=== PATIENT | male | born 1990 | race Caucasian/White ===

== ENCOUNTER 2017-06-20 16:23 | Emergency (ER) | payer SELFPAY ==
[~2017-06-20] VITALS: Ht 170.2 cm; Wt 82.1 kg
--- NOTE | 2017-06-20 16:30 | NUR ---
[address] ALETERED MENTAL STATUS. PATIENT RECEIVED IN FULL RESTRAINTS, PATIENT IS AWAKE, ADMITTED USE OF METH AND ADMITS TAKING FENTANYL, PATIENT IS TACHY AT 170S AT THIS TIME. GOWNED PT AND PLACED ON TELE MONITOR. PENDING MD EISENBERG
--- NOTE | 2017-06-20 16:40 | NUR ---
AT [facility]OM[facility] EISENBERG
--- NOTE | 2017-06-20 16:45 | NUR ---
IV ACCESSED TO BRANDY 20
[2017-06-20] MEDS: IV NS 0.9% 1,000 ML BAG IV ONE ×2 (16:48→16:50)
[2017-06-20] MEDS ORDERED: LORAZEPAM INJ 2 MG/ML VIAL ONE ×2 (16:50→18:25)
--- NOTE | 2017-06-20 16:58 | NUR ---
URINE SAMPLE COLLECTED AND SENT TO LAB
[2017-06-20] MEDS ORDERED: LORAZEPAM INJ 2 MG/ML VIAL IVP ONE ×2 (17:00→18:30)
[2017-06-20 17:18] LABS: BASOPHILS # (AUTO) 0.1 /CMM (0.0-0.2); BASOPHILS % (AUTO) 0.5 % (0.0-2.0); EOSINOPHILS # (AUTO) 0.2 /CMM (0.0-0.7); EOSINOPHILS % (AUTO) 1.8 % (0.0-6.0); HEMATOCRIT 48 % (39-51); HEMOGLOBIN 16.2 g/dL (13.5-17.5); LYMPHOCYTES # (AUTO) 3.1 /CMM (0.8-4.8); LYMPHOCYTES % (AUTO) 22.6 % (20.0-44.0); MEAN CORPUSCULAR HEMOGLOBIN 29 PG (26.0-33.0); MEAN CORPUSCULAR HGB CONC 33 g/dl (31.0-36.0); MEAN CORPUSCULAR VOLUME 87 fL (80-96); MONOCYTES # (AUTO) 0.7 /CMM (0.1-1.30); MONOCYTES % (AUTO) 4.9 % (2.0-12.0); NEUTROPHILS # (AUTO) 9.6 /CMM (1.8-8.9); NEUTROPHILS % (AUTO) 70.2 % (43.0-81.0); PLATELET COUNT (AUTO) 344 /CMM (150-450); RDW COEFFICIENT OF VARIATION 11.6 (11.5-15.0); RED BLOOD CELL COUNT(AUTO) 5.54 MIL/uL (4.5-6.0); WHITE BLOOD COUNT (AUTO) 13.7 K/uL (4.3-11.0)
[2017-06-20 17:24] LABS: CALCIUM, SERUM 10.9 mg/dL (8.5-10.1); CARBON DIOXIDE 24 mmol/L (21-32); CHLORIDE 108 mmol/L (98-107); CREATININE 2.4 mg/dL (0.6-1.3); GLUCOSE 98 mg/dL (74-106); POTASSIUM 3.9 mmol/L (3.5-5.1); SODIUM SERUM 148 mmol/L (136-145); UREA NITROGEN, BLOOD 26 mg/dL (7-18)
[2017-06-20 17:29] LABS: ALANINE AMINOTRANSFERASE 87 U/L (12-78); ALBUMIN 5.2 g/dL (3.4-5.0); ALKALINE PHOSPHATASE 143 U/L (46-116); ASPARTATE AMINOTRANSFERASE 54 U/L (15-37); BILIRUBIN,DIRECT 0.2 mg/dL (0.0-0.2); BILIRUBIN,TOTAL 0.8 mg/dL (0.2-1.0); TOTAL PROTEIN, SERUM 8.8 g/dL (6.4-8.2)
[2017-06-20 17:32] LABS: SALICYLATE 1.1 mg/dL (2.8-20.0)
[2017-06-20 17:33] LABS: ACETAMINOPHEN < 2 ug/ml (10-30); ALCOHOL, BLOOD < 3 mg/dL (0-0)
[2017-06-20 17:46] LABS: APPEARANCE,URINE Clear (CLEAR); BILIRUBIN,URINE SMALL (NEGATIVE); BLOOD, URINE Negative Ery/uL (NEGATIVE); COLOR,URINE Yellow (YELLOW); KETONES,URINE Trace (NEGATIVE); LEUKOCYTE ESTERASE ,URINE Negative (NEGATIVE); NITRITE, URINE Negative (NEGATIVE); PH,URINE 5.5 (5.0-8.0); PROTEIN,URINE 30 mg/dl (NEGATIVE); UGLUCOSE Negative (NEGATIVE); UROBILINOGEN,URINE 0.2 EU/dL (0.2)
[2017-06-20 18:11] LABS: BACTERIA,URINE Few /HPF (None Seen); RBC,URINE 0-2 /HPF (0-2); SQUAMOUS EPITHELIAL CELL,UR Rare /HPF (None Seen); WBC,URINE 1-3/HPF /HPF (0-3)
[2017-06-20 18:12] LABS: MUCUS,URINE Many /LPF (None Seen); URINE AMORPHOUS URATE Moderate /HPF (None Seen)
[2017-06-20] MEDS ORDERED: IV NS 0.9% 1,000 ML BAG IV ONE (18:30)
[2017-06-20 19:19] VITALS: BP 110/72
--- NOTE | 2017-06-20 19:20 | NUR ---
Patient discharged to home in stable condition. Written and verbal after care instructions given. Patient verbalizes understanding of instruction.
== END 2017-06-20 19:24 | disposition home or self-care (01) ==
LOC: ER 16:26 → EDBD 16:26 → ER 19:24
DX: F14.129 Cocaine abuse with intoxication, unspecified (principal); N28.9 Disorder of kidney and ureter, unspecified; R74.0 Nonspecific elevation of levels of transaminase and lactic acid dehydrogenase [LDH]
CPT/HCPCS: 36415; 80048-TC; 80076-TC; 80305; 81000-TC; 85025-TC; A4606; G0480; J2060; J7030; Z7610